=== PATIENT | male | born 1940 | race Caucasian/White ===

== ENCOUNTER → 2017-04-12 | Outpatient (CLI) | payer MEDICARE, BC ==
--- NOTE | 2017-04-12 15:58 | PCVCIMAG ---
APPROVED REPORT Study performed: 04/12/2017 13:27:54 EXAM: Comprehensive 2D, Doppler, and color-flow Echocardiogram Patient Location: Echo lab Status: routine BSA: 1.76 HR: 71 bpmBP: 138/80 mmHg Rhythm: NSR Other Information Study Quality: Good Indications Aortic Root Dilatation. Aortic Regurgitation. 2D Dimensions LVEF(%): 56.76 (>50%) IVSd: 10.65 (7-11mm)LVOT Diam: 21.45 (18-24mm) LVDd: 40.07 mm PWd: 13.65 (7-11mm)Ascending Ao: 40.76 (22-36mm) LVDs: 28.32 (25-40mm) Left Atrium: 37.46 (27-40mm) Aortic Root: 29.89 mm LV Single Plane 4CH: 59.12 % LV Single Plane 2CH: 56.23 %Esteves's LVEF: 57.67 % Biplane EF: 58.5 % Volumes Left Atrial Volume (Systole) Single Plane 4CH: 57.82 mLSingle Plane 2CH: 63.77 mL LA ESV Index: 37.00 mL/m2 Aortic Valve AoV Peak Tez.: 1.94 m/s AO Peak Gr.: 16.31 mmHgLVOT Max P.50 mmHg LVOT Max V: 1.17 m/s MIGUEL Vmax: 2.18 cm2 AI Vmax: 3.49 m/s AI Harney: 1.22 m/s2 AI PHT: 826.83 ms Mitral Valve E/A Ratio: 0.8 MV Decel. Time: 247.04 ms MV E Max Tez.: 0.62 m/s MV A Tez.: 0.82 m/s IVRT: 93.43 ms TDI E/Lateral E': 6.20E/Medial E': 7.75 Medial E' Tez.: 0.08 m/s Lateral E' Tez.: 0.10 m/s Pulmonary Vein P Vein S: 0.71 m/sP Vein A: 0.29 m/s P Vein D: 0.43 m/sP Vein A Dur.: 69.2 msec P Vein S/D Ratio: 1.65 Tricuspid Valve TR Peak Tez.: 2.32 m/s TR Peak Gr.: 21.49 mmHg Left Ventricle The left ventricle is normal size. There is normal LV segmental wall motion. There is normal left ventricular wall thickness. Left ventricular systolic function is normal. The left ventricular ejection fraction is within the normal range. LVEF is 55-60%. Grade I - abnormal relaxation pattern. Right Ventricle The right ventricle is normal size. The right ventricular systolic function is normal. Atria The left atrium size is normal. The right atrium size is normal. Aortic Valve The aortic valve is sclerotic, trileaflet. Mild to moderate aortic regurgitation. There is no aortic valvular stenosis. Mitral Valve The mitral valve is normal in structure. No mitral regurgitation. No evidence of mitral valve stenosis. Tricuspid Valve The tricuspid valve is normal in structure. Trace tricuspid regurgitation. Pulmonary artery pressure is 25mmHg. Pulmonic Valve The pulmonary valve is normal in structure. There is no pulmonic valvular regurgitation. Great Vessels The aortic root is normal in size. Ascending Aorta measures up to 4.2cm. IVC is normal in size and collapses with >50% inspiration Pericardium There is no pericardial effusion. <Conclusion> Left ventricular systolic function is normal. There is normal LV segmental wall motion. LVEF is 55-60%. Grade I diastolic dysfunction The aortic valve is sclerotic, trileaflet. Mild to moderate aortic regurgitation, no stenosis The mitral valve is normal in structure. No mitral regurgitation. Pulmonary artery pressure of 25mmHg There is no pericardial effusion. Ascending Aorta measures up to 4.2cm.
== END | disposition home or self-care (01) ==
LOC: PCVCIMAG 13:13
PROVIDERS: ATTEND Internal Medicine
DX: I71.2 Thoracic aortic aneurysm, without rupture (principal); I35.1 Nonrheumatic aortic (valve) insufficiency; G20 Parkinson's disease; E78.5 Hyperlipidemia, unspecified; H46.9 Unspecified optic neuritis; Z88.0 Allergy status to penicillin
CPT/HCPCS: 80061; 93005; 93306; G0463

== ENCOUNTER → 2018-04-20 | Outpatient (CLI) | payer MEDICARE, BC ==
--- NOTE | 2018-04-20 15:29 | PCVCIMAG ---
APPROVED REPORT Study performed: 04/20/2018 13:37:37 EXAM: Comprehensive 2D, Doppler, and color-flow Echocardiogram Patient Location: Echo lab Room #: [id number]: routine BSA: 1.73 HR: 64 bpm Rhythm: NSR Other Information Study Quality: Good Indications Aortic Valve Disease Thoracic aortic aneurysm 2D Dimensions IVSd: 9.16 (7-11mm)LVOT Diam: 21.96 (18-24mm) LVDd: 41.19 mm PWd: 10.48 (7-11mm)Ascending Ao: 38.36 (22-36mm) LVDs: 24.89 (25-40mm) Left Atrium: 30.72 (27-40mm) Aortic Root: 35.81 mm LV Single Plane 4CH: 58.18 % LV Single Plane 2CH: 59.04 % Biplane EF: 57.6 % Volumes Left Atrial Volume (Systole) Single Plane 4CH: 45.30 mLSingle Plane 2CH: 65.24 mL Biplane LA Volume: 65.00 mLLA ESV Index: 38.00 mL/m2 Aortic Valve AoV Peak Tez.: 1.65 m/s AO Peak Gr.: 10.95 mmHgLVOT Max P.79 mmHg LVOT Mean P.30 mmHg LVOT Max V: 0.97 m/s LVOT Mean V: 0.73 m/s LVOT V1 VTI: 19.45 cm MIGUEL Vmax: 2.21 cm2 AI Vmax: 5.68 m/sSV (LVOT): 73.62 mL AI Sedgwick: 3.11 m/s2 AI PHT: 530.57 ms Mitral Valve E/A Ratio: 0.9 MV Decel. Time: 256.99 ms MV E Max Tez.: 0.48 m/s MV A Tez.: 0.52 m/s IVRT: 76.12 ms TDI E/Lateral E': 6.00E/Medial E': 9.60 Medial E' Tez.: 0.05 m/s Lateral E' Tez.: 0.08 m/s Pulmonary Valve PV Peak Tez.: 0.73 m/sPV Peak Gr.: 2.13 mmHg Pulmonary Vein P Vein S: 0.60 m/sP Vein A: 0.27 m/s P Vein D: 0.39 m/sP Vein A Dur.: 169.6 msec P Vein S/D Ratio: 1.54 Tricuspid Valve TR Peak Tez.: 2.00 m/s TR Peak Gr.: 16.00 mmHg TV Vmax: 0.49 m/sPA Pressure: 23.00 mmHg Left Ventricle The left ventricle is normal size. There is normal LV segmental wall motion. There is normal left ventricular wall thickness. Left ventricular systolic function is normal. The left ventricular ejection fraction is within the normal range. LVEF is 55-60%. Mild diastolic dysfunction is present (impaired relaxation pattern). Right Ventricle The right ventricle is normal size. The right ventricular systolic function is normal. Atria Left atrium is mildly dilated. The right atrium size is normal. Aortic Valve Mild aortic valve calcification, trileaflet Mild to moderate aortic regurgitation There is no aortic valvular stenosis. Mitral Valve The mitral valve is normal in structure. Trace mitral regurgitation. No evidence of mitral valve stenosis. Tricuspid Valve The tricuspid valve is normal in structure. Trace tricuspid regurgitation. No pulmonary hypertension. Pulmonic Valve The pulmonary valve is normal in structure. There is no pulmonic valvular regurgitation. Great Vessels The aortic root is normal in size. Ascending aorta is mildly dilated. Aortic arch is normal in caliber. IVC is normal in size and collapses >50% with inspiration. Pericardium There is no pericardial effusion. There is no pleural effusion. <Conclusion> Left ventricular systolic function is normal. There is normal LV segmental wall motion. LVEF is 55-60%. Mild diastolic dysfunction Left atrium is mildly dilated. Mild aortic valve calcification, trileaflet. Mild to moderate aortic regurgitation, no stenosis The mitral valve is normal in structure. Trace mitral regurgitation. Ascending aorta is mildly dilated. There is no pericardial effusion.
== END | disposition home or self-care (01) ==
LOC: PCVCIMAG 13:50
PROVIDERS: ATTEND Internal Medicine
DX: I08.0 Rheumatic disorders of both mitral and aortic valves (principal); I71.2 Thoracic aortic aneurysm, without rupture; E78.5 Hyperlipidemia, unspecified; G20 Parkinson's disease; H46.9 Unspecified optic neuritis
CPT/HCPCS: 80061; 93005; 93306; G0463

== ENCOUNTER → 2019-04-17 | Outpatient (CLI) | payer MEDICARE, BC | END | disposition home or self-care (01) | LOC: PCVCCLINIC 15:54 | PROVIDERS: ATTEND Internal Medicine | DX: I71.2 Thoracic aortic aneurysm, without rupture (principal); I35.1 Nonrheumatic aortic (valve) insufficiency; I44.0 Atrioventricular block, first degree; E78.5 Hyperlipidemia, unspecified; G20 Parkinson's disease; H46.9 Unspecified optic neuritis; Z90.79 Acquired absence of other genital organ(s); Z88.0 Allergy status to penicillin; Z79.899 Other long term (current) drug therapy | CPT/HCPCS: 36415; 80061; 93005; G0463 ==